=== PATIENT | female | born 1975 | race Two or more races ===

== ENCOUNTER 2020-08-08 08:38 | Outpatient (REF) | payer OTHER, SELFPAY | END 2020-08-08 08:39 | disposition home or self-care (01) | LOC: HO.LAB 08:38 | PROVIDERS: PCP Internal Medicine; Visit Provider Obstetrics & Gynecology | DX: N93.9 Abnormal uterine and vaginal bleeding, unspecified (principal); J45.909 Unspecified asthma, uncomplicated; I10 Essential (primary) hypertension; Z91.012 Allergy to eggs; Z91.040 Latex allergy status; Z91.018 Allergy to other foods; Z91.013 Allergy to seafood; Z88.8 Allergy status to other drugs, medicaments and biological substances | CPT/HCPCS: 58100; 88305 ==

== ENCOUNTER 2020-08-13 12:52 | Outpatient (REF) | payer OTHER, SELFPAY ==
--- NOTE | ~2020-08-13 | US_ITS ---
EXAMINATION: PELVIC ULTRASOUND CLINICAL INFORMATION: Abnormal uterine vaginal bleeding COMPARISON: Previous pelvic ultrasound most recent March 2019 TECHNIQUE: Transabdominal and transvaginal pelvic ultrasound was performed. Transvaginal exam was performed for better visualization of the uterus and ovaries. Exam is limited due to patient body habitus. FINDINGS: The uterus is anteverted and retroflexed and measures 12 x 6.5 x 0.8 cm in dimension. There is a 4.6 x 3.9 x 4.3 cm hypoechoic lesion in the anterior uterine body suggestive of a fibroid. This is increased from 2.8 x 2.5 x 2.8 cm on March 2019 exam. There is a small simple cyst in the high left uterine body measuring 7 x 6 x 6 mm. The endometrium is slightly thickened measuring 1.7 cm. There is fluid and hyperechoic material seen in the endometrium in the lower uterine segment. This is probably related the patient's current menses. The cervix is normal appearing. The right ovary is not seen. The left ovary is seen transabdominally only and measures 3.7 x 1.9 x 2.6 cm. There is no fluid in the pelvis. US/US transvaginal IMPRESSION: Limited exam. 4.6 x 3.9 x 4.3 cm anterior uterine body fibroid. This is increased from previous exam. Slightly thickened endometrium and fluid and echogenic material in the lower uterine segment endometrial canal probably related to patient's current menses. Normal-appearing left ovary. Right ovary not seen.
--- NOTE | ~2020-08-13 | US_ITS ---
EXAMINATION: PELVIC ULTRASOUND CLINICAL INFORMATION: Abnormal uterine vaginal bleeding COMPARISON: Previous pelvic ultrasound most recent March 2019 TECHNIQUE: Transabdominal and transvaginal pelvic ultrasound was performed. Transvaginal exam was performed for better visualization of the uterus and ovaries. Exam is limited due to patient body habitus. FINDINGS: The uterus is anteverted and retroflexed and measures 12 x 6.5 x 0.8 cm in dimension. There is a 4.6 x 3.9 x 4.3 cm hypoechoic lesion in the anterior uterine body suggestive of a fibroid. This is increased from 2.8 x 2.5 x 2.8 cm on March 2019 exam. There is a small simple cyst in the high left uterine body measuring 7 x 6 x 6 mm. The endometrium is slightly thickened measuring 1.7 cm. There is fluid and hyperechoic material seen in the endometrium in the lower uterine segment. This is probably related the patient's current menses. The cervix is normal appearing. The right ovary is not seen. The left ovary is seen transabdominally only and measures 3.7 x 1.9 x 2.6 cm. There is no fluid in the pelvis. US/US pelvic complete IMPRESSION: Limited exam. 4.6 x 3.9 x 4.3 cm anterior uterine body fibroid. This is increased from previous exam. Slightly thickened endometrium and fluid and echogenic material in the lower uterine segment endometrial canal probably related to patient's current menses. Normal-appearing left ovary. Right ovary not seen.
== END 2020-08-13 12:53 | disposition home or self-care (01) ==
LOC: HO.US 12:52
PROVIDERS: PCP Hospitalist; Visit Provider Obstetrics & Gynecology
DX: N93.9 Abnormal uterine and vaginal bleeding, unspecified (principal)
CPT/HCPCS: 76830; 76856

== ENCOUNTER → 2020-08-25 11:37 | Outpatient (BNVA) | payer OTHER, SELFPAY | PROVIDERS: PCP Hospitalist; Visit Provider Obstetrics & Gynecology ==

== ENCOUNTER 2021-03-01 08:02 | Emergency (ER) | payer OTHER, SELFPAY ==
--- NOTE | 2021-03-01 08:23 | ECG_ITS ---
Test Reason : DIZZ Blood Pressure : / mmHG Vent. Rate : 071 BPM Atrial Rate : 071 BPM P-R Int : 154 ms QRS Dur : 094 ms QT Int : 412 ms P-R-T Axes : 061 016 022 degrees QTc Int : 447 ms Normal sinus rhythm Normal ECG When compared with ECG of 26-SEP-2019 13:38, No significant change was found Referred By: Generic ED Physician Electronically Signed By:CHANCE DE OLIVEIRA
[2021-03-01 09:17] VITALS: BP 177/94; PULSE 66; RESP 16; O2SAT 99; BMI 43.4
[2021-03-01 09:29] VITALS: TEMP 36.9
--- NOTE | 2021-03-01 09:35 | ED_ITS ---
HPI - Arrhythmia/Palpitations General Chief Complaint: Arrhythmia/Palpitations Stated Complaint: palpations Time Seen by Provider: 03/01/21 09:10 Source: patient Mode of arrival: ambulatory Limitations: no limitations History of Present Illness HPI narrative: 45-year-old female past medical history significant for h ypertension, and asthma presenting to the emergency department with 1 week of intermittent palpitations, and headache for the past 2 days. She states that she gets palpitations throughout the day, he has palpitations lasted few seconds, and then resolve. She states it feels llike her heart is racing and then skips a beat . She states she feels chest heaviness, when she gets these palpitations however when these palpitations a not occurring she denies any chest pain or pressure. She describes the headache as someone squeezing her head and neck. She reports she has not been sleeping the past few days. She also mentions that she got COVID in May, and since then she has not felt the same. She denies shortness of breath, abdominal pain, nausea, vomiting, changes in vision, weakness, recent sick contacts. She also mentioned she has visited her PCP, who tested her for COVID multiple times, she has tested negative twice this week. MD complaint: rapid heart beat, heart racing and skipped beats Onset (ago): week(s) (1) Duration: intermittent Severity: moderate Associated symptoms: other (Frontal headache.) Related Data Home Medications Medication Instructions Recorded Confirmed albuterol sulfate 90 mcg/actuation 0 mcg INHALATION 08/08/20 aerosol inhaler ascorbic acid (vitamin C) 250 mg 250 mg PO DAILY 08/08/20 tablet fluticasone 113 mcg-salmeterol 14 1 inh PO BID 08/08/20 mcg/actuation breath activated powdr ibuprofen 600 mg tablet 600 mg PO TID 08/08/20 ipratropium bromide 21 mcg (0.03 INTRANASAL 08/08/20 %) nasal spray loratadine 10 mg tablet 10 mg PO DAILY 08/08/20 losartan 50 mg tablet 50 mg PO DAILY 08/08/20 montelukast 10 mg tablet 10 mg PO DAILY 08/08/20 Previous Rx's Medication Instructions Recorded czjrdxenvs-onzrmumyfgptt-ybgruaac 1 cap PO Q8H PRN #10 cap 03/01/21 50 mg-300 mg-40 mg capsule (Fioricet) Allergies Allergy/AdvReac Type Severity Reaction Status Date / Time shellfish derived Allergy Intermediate RASH Unverified 08/25/20 11:52 [SHELLFISH DERIVED] hydrochlorothiazide Allergy Mild RASH AND Unverified 08/25/20 11:52 SWELLING almond Allergy Unknown ITCHING Unverified 08/25/20 11:52 latex [Latex] Allergy Unknown RASH Unverified 08/25/20 11:52 lisinopril [LISINOPRIL] Allergy Unknown COUGH Unverified 08/25/20 11:52 keisha [KEISHA] Allergy Unknown HIVES Unverified 08/25/20 11:52 shellfish Allergy Unknown unknown Unverified 08/25/20 11:52 almonds Allergy Unknown Unknown Uncoded 08/25/20 11:52 HCTZ Allergy Unknown Unknown Uncoded 08/25/20 11:52 latex Allergy Unknown Unknown Uncoded 08/25/20 11:52 Latex Gloves Allergy Unknown Unknown Uncoded 08/25/20 11:52 Review of Systems Review of Systems: Yes all other systems are reviewed and are negative Constitutional: Constitutional: Reports no additional constitutional complaints, Denies body ache(s), Denies chills, Denies fever(s), Reports headache(s) (frontal ) and Denies weakness Eyes: Eyes: Reports no additional eye complaints, Denies blurry vision and Denies change in vision ENT: Reports system reviewed and no additional complaints, except as documented, Denies dizziness, Reports headache(s) (frontal ), Denies nasal congestion, Denies nasal discharge and Denies neck pain Cardiovascular: Cardiovascular: Reports no additional cardiovascular complaints, Denies chest pain, Denies leg edema, Denies dyspnea and Reports other (palpitations ) Respiratory: Respiratory: Reports no additional respiratory complaints, Denies cough and Denies dyspnea Gastrointestinal: Gastrointestinal: Reports no additional gastrointestinal complaints, Denies abdominal pain, Denies diarrhea, Denies nausea and Denies vomiting Genitourinary: Genitourinary: Reports no additional female genitourinary complaints and Denies urinary incontinence Musculoskeletal: Musculoskeletal: Reports no additional musculoskeletal complaints, Denies back pain, Denies arthralgias, Denies joint swelling, Denies neck pain, Denies numbness and Denies tingling Integumentary/Breasts: Skin/Breast: Reports system reviewed and no additional complaints, except as docu and Denies rash Neurologic: Reports system reviewed and no additional complaints, except as documented, Denies Abnormal speech present, Denies dizziness, Reports headache(s) (frontal ), Denies numbness, Denies tingling and Denies weakness PMFSH Past Medical History Attestation statement: The following information was validated with the patient. Source: old records reviewed Medical History Acute hemorrhoid Asthma Eczema HTN (hypertension) Surgical History History of bilateral tubal ligation History of Social History Social History Alcohol intake: never Advance Directives: No Advance Directives Information Provided: Yes Patient : No Gender identity: Female Physical Exam Vital Signs: Vital Signs: Last Vital Signs Temp 98.4 F 03/01/21 09:29 Pulse 66 03/01/21 09:17 Resp 16 03/01/21 09:17 BP 177/94 H 03/01/21 09:17 Pulse Ox 99 03/01/21 09:17 Body Mass Index 43.4 Const: General: cooperative, healthy appearing, comfortable and no acute dist ress Orientation/consciousness: patient oriented x3 Limitations: no limitations HENMT: Head: Yes normal to inspection Ears: hearing grossly normal bilaterally General nose exam: Normal external nose present Face and sinus: Yes normal facial exam Mouth: Normal oral and palatal mucosa present Throat: Yes posterior oropharynx normal Eyes: General: appearance normal, both eyes and all related structures Pupils: Equal, round and reactive pupils present Neck: Neck: Yes normal visual inspection Chest: Chest palpation & inspection: normal inspection of the chest Resp: Effort & Inspection: normal respiratory effort Auscultation: clear to auscultation bilaterally Cardio: Rate: regular rate Rhythm: regular rhythm Peripheral pulses: Peripheral pulses 2+ throughout GI: Inspection: Yes normal to inspection Palpation (GI): Soft to palpation and nontender Auscultation: normal bowel sounds Back/Spine/Pelvis: Thoracic/Lumbar Spine: thoracic and lumbar spine normal to inspection Skin: General skin exam: no rashes or lesions noted Neuro: General: patient oriented x3, no focal motor deficits and normal sensation to monofilament Cranial nerves: Yes Equal, round and reactive pupils present Cognition (Neuro): normal cognition Speech: No Abnormal speech present Gait exam (Neuro): Normal gait present Motor exam (neuro): 5/5 motor strength present throughout Extrem: General: Yes normal to inspection, Yes no pedal edema and Yes no calf tenderness Course Course Course Narrative: 45-year-old female past medical history significant for asthma, and hypertension presents to the emergency department with 1 week of palpitations that lasted few seconds, and then resolve and 2 days of a frontal headache described as someone squeezing her head, she also mentions associated neck tension. She denies significant family cardiac history. She also states she just hasent felt right since she got COVID in May this year. 1200-Reviewed labs, EKG with patient. Patient feels improved after fiorcet. She tells me she started a new job recently, has had increased stress and not sleeping well. Likely anxiety, stress related but re-asssured patient with labs and EKG. Recommend she continue to follow-up with PCP. Reviewed worrisome signs/symptoms with patient and when to return to ED. Comfortable with discharge home. MDM - Arrhythmia/Palpitations MDM Narrative Medical decision making narrative: Patient's EKG shows a normal sinus rhythm, with ventricular rate of 71, there are no signs of acute ischemia. Base of the patient's symptoms, and physical exam findings this is likely a tension-type headache, with associated anxiety. She will be given Fioricet. Patient does not report chest pain, or shortness of breath. This is likely not cardiac in origin, there is no cardiac family history. Patient is not hypoxic, or tachypneic she is PERC negative, likley not PE. Labs will be ordered to rule out infection, electrolyte abnormalities and anemia. Patient is safe for discharge home, with PCP follow-up. Medical Records Attestation: I reviewed the patient's medical records. Lab Data Attestation: I reviewed the patient's lab results. Result diagrams: 03/01/21 09:47 03/01/21 09:47 Labs: Lab Results 03/01/21 03/01/21 Range/Units 09:47 09:47 WBC 5.3 (4.8-10.8) X10*3/uL RBC 4.24 (4.20-5.50) X10*6/uL Hgb 12.8 (12.0-16.0) g/dl Hct 36.8 L (37-47) % MCV 86.8 (80-98) fL MCH 30.2 (27.0-33.0) pg MCHC 34.8 (31.0-35.0) g/dl RDW 11.6 (11.0-16.0) % Plt Count 252 (160-400) X10*3/uL MPV 8.3 L (9.4-12.3) fL Immature Gran % (Auto) 0.4 (0.0-0.4) % Neut % (Auto) 47.8 (45-73) % Lymph % (Auto) 35.8 (20-40) % [place] % (Auto) 11.6 H (2-11) % Eos % (Auto) 3.8 (0-4) % Baso % (Auto) 0.6 (0-2) % Lymph # (Auto) 1.9 (1.2-4.9) X10*3/uL [place] # (Auto) 0.6 (0.1-1.2) X10*3/uL Eos # (Auto) 0.2 (0.0-0.4) X10*3/uL Baso # (Auto) 0.0 (0.0-0.2) X10*3/uL Abs Immat Gran (auto) 0.02 (0.00-0.03) X10*3/uL Absolute Neuts (auto) 2.6 (2.0-8.3) X10*3/uL Absolute Nucleated RBC 0.000 (0.0-0.012) X10*3/uL Nucleated RBC % (auto) 0.0 (0.0-0.2) /100WBC Sodium 142 (135-145) mmol/L Potassium 3.9 (3.3-5.1) mmol/L Chloride 108 (96-108) mmol/L Carbon Dioxide 27 (22-29) mmol/L Anion Gap 11 L (12-20) BUN 10 (9-16) mg/dL Creatinine 0.70 (0.5-1.4) mg/dL Estim Creat Clear Calc 112.8 Estimated GFR > 60 Random Glucose 110 (60-115) mg/dL Calcium 9.2 (8.4-10.2) mg/dL Total Bilirubin 0.4 (0.0-1.0) mg/dL Direct Bilirubin 0.2 (0.0-0.5) mg/dL AST 21 (5-31) U/L ALT 35 H (0-31) U/L Alkaline Phosphatase 63 (39-117) U/L Total Protein 7.1 (6.5-8.0) g/dL Albumin 4.1 (3.5-5.0) g/dL ECG Data Attestation: I personally reviewed and interpreted this ECG as follows: ECG interpretation date: 03/01/21 ECG interpretation time: 12:02 Prior ECG tracings: available for review Interpretation: Ventricular rate of 71, normal [place] interval, normal QRS, normal QT/QTC. EKG shows normal sinus rhythm. No ST elevations, no T-wave inversions. No signs of acute ischemia. When compared with EKG from 09/26/2019 there is no significant changes. Discharge Plan Discharge Clinical Impression: Palpitations, Anxiety Patient Disposition: Home, Self-Care Instructions: Heart Palpitations (ED) Additional Instructions: Follow-up with your primary care provider this week. Follow up with your PCP it may be worth mentioning your interest in having a holter moniter. Return to the emergency department with new or worsening symptoms. Prescriptions: New ftivnakcra-xrnzbzhrejgii-edkn [Fioricet] 50-300-40 mg capsule 1 cap PO Q8H PRN (Reason: headache) Qty: 10 RF: 0 No Action losartan 50 mg tablet 50 mg PO DAILY RF: 0 montelukast 10 mg tablet 10 mg PO DAILY RF: 0 ipratropium bromide 21 mcg (0.03 %) spray,non-aerosol intranasal RF: 0 fluticasone propion-salmeterol 113-14 mcg/actuation aerosol powdr breath act ivated 1 inh PO BID RF: 0 albuterol sulfate 90 mcg/actuation HFA aerosol inhaler 0 mcg inhalation RF: 0 ibuprofen 600 mg tablet 600 mg PO TID RF: 0 ascorbic acid (vitamin C) 250 mg tablet 250 mg PO DAILY RF: 0 loratadine 10 mg tablet 10 mg PO DAILY RF: 0 Referrals: Sushma Gannon [employer]PERATOR [Primary Care Provider] - 2 days Stand Alone Forms: Work/School Release Interventions: ED Discharge Assessment Last Done: 03/01/21 11:43 Discharge Date/Time: 03/01/21 11:43
[2021-03-01 09:52] LABS: MANUAL DIFF FLAG NO
[2021-03-01 09:54] LABS: Basophils Percent Auto 0.6 % (0-2); Eosinophils Absolute Auto 0.2 X10*3/uL (0.0-0.4); Eosinophils Percent Auto 3.8 % (0-4); Hematocrit 36.8 % (37-47); Hemoglobin 12.8 g/dl (12.0-16.0); Imm Gran Abs Auto 0.02 X10*3/uL (0.00-0.03); Imm Gran Pct Auto 0.4 % (0.0-0.4); Lymphocytes Absolute Auto 1.9 X10*3/uL (1.2-4.9); Lymphocytes Percent Auto 35.8 % (20-40); Mean Corpuscular HGB Conc 34.8 g/dl (31.0-35.0); Mean Corpuscular Hemoglobin 30.2 pg (27.0-33.0); Mean Corpuscular Volume 86.8 fL (80-98); Mean Platelet Volume 8.3 fL (9.4-12.3); Monocytes Absolute Auto 0.6 X10*3/uL (0.1-1.2); Monocytes Percent Auto 11.6 % (2-11); Neutrophils Absolute Auto 2.6 X10*3/uL (2.0-8.3); Neutrophils Percent Auto 47.8 % (45-73); Platelet Count 252 X10*3/uL (160-400); Red Blood Count 4.24 X10*6/uL (4.20-5.50); Red Cell Distribution Width 11.6 % (11.0-16.0); White Blood Count 5.3 X10*3/uL (4.8-10.8)
[2021-03-01] MEDS: Butalb/Acetamin/Caff 50/325/40 TABLET 1 TAB PO (09:55)
[2021-03-01 10:09] LABS: Alanine Aminotransferase 35 U/L (0-31); Albumin Level 4.1 g/dL (3.5-5.0); Alkaline Phosphatase 63 U/L (39-117); Anion Gap 11 (12-20); Aspartate Amino Transferase 21 U/L (5-31); Bilirubin Direct 0.2 mg/dL (0.0-0.5); Bilirubin Total 0.4 mg/dL (0.0-1.0); Blood Urea Nitrogen 10 mg/dL (9-16); Calcium 9.2 mg/dL (8.4-10.2); Carbon Dioxide 27 mmol/L (22-29); Chloride 108 mmol/L (96-108); Creatinine Clr Calc Pharmacy 112.8; Estimated Glomerular Filt Rate > 60; Glucose Random 110 mg/dL (60-115); Potassium 3.9 mmol/L (3.3-5.1); Sodium 142 mmol/L (135-145); Total Protein 7.1 g/dL (6.5-8.0)
== END 2021-03-01 11:43 | disposition home or self-care (01) ==
PROVIDERS: Nurse Practitioner Family; Emergency Provider Internal Medicine; PCP Nurse Practitioner Family
DX: R00.2 Palpitations (principal); F41.1 Generalized anxiety disorder; F43.0 Acute stress reaction; I10 Essential (primary) hypertension; R51.9 Headache, unspecified; Z79.899 Other long term (current) drug therapy
CPT/HCPCS: 36415; 80048; 80076; 85025; 93005; 99284; 99285